=== PATIENT | male | born 1995 | race African-American/Black ===

== ENCOUNTER 2021-11-27 16:13 | Emergency (ER) | payer OTHER ==
[~2021-11-27] VITALS: Ht 182.9 cm; Wt 122.9 kg
[2021-11-27 16:15] VITALS: BP 113/72
== END 2021-11-27 17:48 | disposition home or self-care (01) ==
LOC: ER 16:13
DX: S52.122A Displaced fracture of head of left radius, initial encounter for closed fracture (principal); W01.0XXA Fall on same level from slipping, tripping and stumbling without subsequent striking against object, initial encounter; Y93.89 Activity, other specified; Y92.89 Other specified places as the place of occurrence of the external cause; Y99.8 Other external cause status
CPT/HCPCS: 29105; 73080; 73110